=== PATIENT | female | born 1985 | race Caucasian/White ===

== ENCOUNTER 2016-03-21 19:38 | Emergency (ER) | payer OTHER ==
[2016-03-21] MEDS ORDERED: SODIUM CHLORIDE 0.9% 1,000 ML IV ONE (20:01)
[2016-03-21] MEDS ORDERED: PANTOPRAZOLE 40 MG VIAL IVP STA (20:01)
[2016-03-21] MEDS ORDERED: PANTOPRAZOLE 40 MG VIAL ONE (20:05)
[2016-03-21] MEDS ORDERED: POTASSIUM CHLORIDE 20 MEQ TABLET PO STA (21:17)
[2016-03-21] MEDS ORDERED: POTASSIUM CHLORIDE 20 MEQ TABLET PO ONE (21:48)
[2016-03-22] MEDS ORDERED: ACETAMINOPHEN 500 MG TABLET PO STA (12:22)
[2016-03-22] MEDS ORDERED: ACETAMINOPHEN 500 MG TABLET PO ONE (12:26)
== END 2016-03-22 17:35 ==
DX: K29.60 Other gastritis without bleeding (principal); T39.1X2A Poisoning by 4-Aminophenol derivatives, intentional self-harm, initial encounter; T39.312A Poisoning by propionic acid derivatives, intentional self-harm, initial encounter; F32.9 Major depressive disorder, single episode, unspecified
CPT/HCPCS: 36415; 80053; 80306; 80307; 80320; 80329; 81001; 83690; 85025; 85610; 87086; 96374; 99285; A9270